=== PATIENT | female | born 1995 | race Caucasian/White ===

== ENCOUNTER 2019-07-24 22:23 | Emergency (ER) | payer OTHER ==
[2019-07-24] MEDS ORDERED: ACETAMINOPHEN TAB 500 MG TAB PO STA (22:48)
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
[2019-07-25] MEDS ORDERED: CYCLOBENZAPRINE 10MG STARTER 3 TAB BTL PO STA
[2019-07-25] MEDS ORDERED: IBUPROFEN 600 MG STARTER PACK 4 TAB BTL PO STA
[2019-07-25] MEDS ORDERED: ONDANSETRON 4 MG ODT STARTER PACK 2 TAB BTL PO STA (00:08)
[2019-07-25 00:32] VITALS: BP 116/71; PULSE 76; RESP 16; TEMP 98
== END 2019-07-25 00:20 | disposition home or self-care (01) ==
LOC: EC 22:23
DX: S06.0X0A Concussion without loss of consciousness, initial encounter (principal); S16.1XXA Strain of muscle, fascia and tendon at neck level, initial encounter; S40.012A Contusion of left shoulder, initial encounter; S70.02XA Contusion of left hip, initial encounter; Z79.3 Long term (current) use of hormonal contraceptives; Z98.1 Arthrodesis status; V43.52XA Car driver injured in collision with other type car in traffic accident, initial encounter; Y93.89 Activity, other specified; Y92.481 Parking lot as the place of occurrence of the external cause
CPT/HCPCS: 73030; 73502; 72125; 70450; 99284; S0119